=== PATIENT | male | born 1945 | race Two or more races ===

== ENCOUNTER 2023-04-02 14:02 | Emergency (ER) | payer OTHER ==
[~2023-04-02] VITALS: Ht 182.9 cm; Wt 79.4 kg
[2023-04-02] MEDS ORDERED: GLUMETZA500 MG PO (14:21)
[2023-04-02] MEDS ORDERED: XARELTO10 MG PO (14:21)
[2023-04-02] MEDS ORDERED: LANTUS SOL100 UNIT/1 SUBCUTANEO (14:21)
== END 2023-04-02 17:42 | disposition home or self-care (01) ==
LOC: ER 14:02
DX: S61.021A Laceration with foreign body of right thumb without damage to nail, initial encounter (principal); W18.30XA Fall on same level, unspecified, initial encounter; Y93.89 Activity, other specified; Y92.89 Other specified places as the place of occurrence of the external cause; S80.01XA Contusion of right knee, initial encounter; E11.9 Type 2 diabetes mellitus without complications; Z79.4 Long term (current) use of insulin

== ENCOUNTER 2023-04-12 10:43 | Emergency (ER) | payer OTHER ==
[~2023-04-12] VITALS: Ht 182.9 cm; Wt 79.4 kg
[~2023-04-12 10:43] MED LIST: GLUMETZA500 MG PO; LANTUS SOL100 UNIT/1 SUBCUTANEO; XARELTO10 MG PO
== END 2023-04-12 14:11 | disposition home or self-care (01) ==
LOC: ER 10:43
DX: Z48.02 Encounter for removal of sutures (principal)